=== PATIENT | female | born 1995 | race Caucasian/White ===

== ENCOUNTER 2023-03-15 04:22 | Emergency (ER) | payer SELFPAY ==
[2023-03-15 04:26] VITALS: BP 178/103; PULSE 45; RESP 17; TEMP 36.5; O2SAT 100; BMI 52.2
[2023-03-15 04:29] VITALS: PULSE 45; RESP 10
[2023-03-15 04:30] VITALS: O2SAT 100
[2023-03-15 04:33] VITALS: PULSE 43; RESP 12
[2023-03-15 04:34] VITALS: BP 178/103; PULSE 56; RESP 15; O2SAT 99
--- NOTE | 2023-03-15 04:46 | XR_ITS ---
The [address] [address] Patient Name: IVAN WILEY MRN: [id number] date: 1995 Sex: F Assigned Patient Location: ED.MAIN Current Patient Location: ED.MAIN Accession/Order Number: [id number] Exam Date: 03/15/2023 04:55 Report Date: 03/15/2023 05:17 At the request of: LUIS EDUARDO MARKER Procedure: XR chest 1V EXAM: XR chest 1V 03/15/2023 4:55 AM EDT OH001 CLINICAL STATEMENT: CP chest pain COMPARISON: No prior studies are available at the time of dictation. TECHNIQUE: Single AP radiograph of the chest is submitted. FINDINGS: There is no acute airspace disease. Enlarged cardiac silhouette. The costophrenic recesses are sharp. No pneumothorax. The bony elements are unremarkable. IMPRESSION: No acute airspace disease. Enlarged cardiac silhouette. Electronically authenticated by: TIM CORTES Date: 03/15/2023 05:17
--- NOTE | 2023-03-15 04:46 | ECG_ITS ---
The [facility] Test Date: 2023-03-15 Pat Name: IVAN WILEY Department: Room: - Gender: Female Electrolytic Etcher: : 1995 Requested By: Order Number: [id number] Reading MD: NAVNEET DUMONT Measurements Intervals Pierz Rate: 41 P: 44 [place]: 150 QRS: 35 QRSD: 106 T: 25 QT: 446 QTc: 381 Interpretive Statements 1130 Sinus bradycardia 9140 abnormal rhythm ECG No previous ECG available for comparison Electronically Signed On 03-16-2023 7:07:12 EDT by NAVNEET DUMONT
--- NOTE | 2023-03-15 04:49 | ED_ITS ---
HPI - Chest Pain General Chief Complaint: Chest Pain Stated Complaint: CHEST PAIN Time Seen by Provider: 03/15/23 04:24 Source: patient Mode of arrival: Wheelchair Limitations: no limitations History of Present Illness HPI narrative: 28 year old female with a history of anxiety and bipolar disorder presents for evaluation of midsternal chest pain. The chest pain started around midnight, 5 hours ago while the patient was at work. She states that she may be having some anxiety issues however she had 2 episodes of nausea with vomiting earlier in the evening. She denies any shortness of breath but states she feels that she cannot take a deep breath.She feels dizzy has not passed out. She denies any abdominal pain. She has no lower extremity pain or swelling. She has not had a fever or cough. She states she is supposed to be on Abilify but has not had it since December of this year. MD complaint: Reports chest pain Onset (ago): hour(s) (4) Timing of current episode: Reports constant Onset: Reports other (started after vomiting and while at work) Pain location: Reports substernal Related Data Home Medications Medication Instructions Recorded Confirmed aripiprazole 5 mg tablet (Abilify) 5 mg PO DAILY 03/15/23 03/15/23 Allergies Allergy/AdvReac Type Severity Reaction Status Date / Time flagy Allergy Unknown Uncoded 03/15/23 04:36 Exam Narrative Exam Narrative: Constitutional: Nontoxic morbidly obese female resting comfortably on the stretcher, no respiratory distress Vital signs: Patient is afebrile, she is bradycardic with a pulse of 56 and blood pressure is elevated at 148/100, monitor read 170/103 but a manual was repeated and is lower. She is not hypoxic with pulse ox of 99 percent on room air HEENT: Normocephalic/atraumatic, mucus membranes are moist and pink, no scleral icterus Neck: Supple, no JVD D or meningeal signs Chest: Anterior chest wall tenderness to palpation, no crepitus appreciated, lungs are clear with good air entry, there is no wheezing rhonchi or rales appreciated Abdomen: Soft, nondistended, nontender, no rebound guarding rigidity Extremity exam: nontender, no edema Neuro: No focal deficits Psych: Flat affect, denies suicidal or homicidal ideation Constitutional Vital Signs - 24 hr 03/15/23 04:26 06/29/23 04:29 03/15/23 04:30 Temperature 97.7 F Pulse Rate 45 L Pulse Rate [Monitor] 45 L Respiratory Rate 17 10 L Blood Pressure Blood Pressure [Left Arm] 178/103 H Pulse Oximetry 100 100 Oxygen Delivery Method Room Air 03/15/23 04:33 03/15/23 04:34 Temperature Pulse Rate 43 L 56 L Pulse Rate [Monitor] Respiratory Rate 12 15 Blood Pressure 178/103 H Blood Pressure [Left Arm] Pulse Oximetry 99 Oxygen Delivery Method Course Vital Signs Vital signs: Vital Signs Temperature 97.7 F 03/15/23 04:26 Pulse Rate 45 L 03/15/23 04:26 Respiratory Rate 17 03/15/23 04:26 Blood Pressure 178/103 H 03/15/23 04:26 Pulse Oximetry 100 03/15/23 04:26 Oxygen Delivery Method Room Air 03/15/23 04:26 Temperature 97.7 F 03/15/23 04:26 Pulse Rate 56 L 03/15/23 04:34 Respiratory Rate 15 03/15/23 04:34 Blood Pressure 178/103 H 03/15/23 04:34 Pulse Oximetry 99 03/15/23 04:34 Oxygen Delivery Method Room Air 03/15/23 04:26 MDM - Chest Pain MDM Narrative Medical decision making narrative: 28-year-old female with history of anxiety and bipolar disorder who is off of her psychiatric medications at this time presents for evaluation of 2 episodes of vomiting earlier in the evening with midsternal chest pain and anxiety. She admits to occasional tobacco use. She is morbidly obese. The symptoms started while she was at work. She denies that anything particularly bad happen to her work. An EKG done upon arrival is a sinus bradycardia at 40 bpm. No acute changes were noted. An IV was placed and she was given IV fluids. 324 mg baby aspirin, Zofran and Ativan. Reevaluation she states that she is still having midsternal chest pain and was medicated with IV Toradol. Cardiac workup including troponin and d-dimer are ordered and are reviewed. Her labs are normal with a mild elevation in her creatinine. Her d-dimer and troponin are both normal. She has a normal white count and hemoglobin. Chest x-ray was read by radiology as normal. The patient does not currently have a PCP I encouraged her to follow up closely with [facility] in [place] where she lives. She would benefit from being back on her psychiatric medications. I will discharge her with a prescription for ibuprofen and Zofran. I suspect her bradycardia is chronic in nature and not related to her pain although she may benefit from seeing a surveillance dual rate officer and being more thoroughly evaluated. Lab Data Labs: Lab Results 03/15/23 Range/Units 04:58 WBC 8.4 (4.0-11.0) 10^3/uL RBC 4.23 (4.20-5.40) 10^6/uL Hgb 12.8 (12.0-16.0) g/dL Hct 38.5 (36.0-48.0) % MCV 91.0 (81.0-99.0) fL MCH 30.3 (26.7-34.0) pg MCHC 33.2 (29.9-35.2) g/dL RDW 13.6 (11.0-15.0) % Plt Count 239 (150-450) 10^3/uL MPV 9.5 (9.5-13.5) fL Neut % (Auto) 74.9 (43.0-75.0) % Lymph % (Auto) 17.3 L (20.5-60.0) % [place] % (Auto) 5.8 (1.7-12.0) % Eos % (Auto) 1.1 (0.9-7.0) % Baso % (Auto) 0.5 (0.2-2.0) % Neut # (Auto) 6.3 (1.4-6.5) 10^3/uL Lymph # (Auto) 1.5 (1.2-3.8) 10^3/uL [place] # (Auto) 0.5 (0.3-0.8) 10^3/uL Eos # (Auto) 0.1 (0.0-0.7) 10^3/uL Baso # (Auto) 0.0 (0.0-0.1) 10^3/uL Abs Immat Gran (auto) 0.03 (0.00-0.03) 10^3/uL Imm/Tot Granulo (auto) 0.4 (0.0-0.5) % D-Dimer 0.31 (<=0.59) mg/L FEU Sodium 140 (136-145) mmol/L Potassium 4.0 (3.5-5.1) mmol/L Chloride 105 (98-107) mmol/L Carbon Dioxide 27.1 (21.0-32.0) mmol/L Anion Gap 11.9 BUN 14.0 (7.0-18.0) mg/dL Creatinine 1.06 H (0.55-1.02) mg/dL Est GFR ( Amer) >60 (>=60) Est GFR (Non-Af Amer) >60 (>=60) BUN/Creatinine Ratio 13.2 Glucose 100 (74-106) mg/dL Calcium 9.3 (8.5-10.1) mg/dL Total Bilirubin 0.2 (0.2-1.0) mg/dL AST 22 (15-37) U/L ALT 51 (14-59) U/L Alkaline Phosphatase 56 (46-116) U/L Troponin I High Sens 5.1 (4.0-51.3) pg/mL Total Protein 8.1 (6.4-8.2) g/dL Albumin 3.5 (3.4-5.0) g/dL Globulin 4.6 g/dL Albumin/Globulin Ratio 0.8 Lipase 81.0 (73.0-393.0) U/L Serum HCG, Qual Negative (NEGATIVE) ECG Data Attestation: I personally reviewed and interpreted this ECG as follows: (Sinus bradycardia at 41 beats for minute, normal axis, normal intervals, no acute ST segment elevation or T-wave inversion) Heart Score History: Slightly/Non-Suspicious ECG: Normal Age: <45 years Risk Factors: 1 or 2 Risk Factors Troponin: <Normal Limit Total Heart Score Recommendations & Risks:: 1 Discharge Plan Discharge Chief Complaint: Chest Pain Clinical Impression: Anxiety, Bradycardia, sinus, Atypical chest pain Time of Disposition Decision: 06:12 Prescriptions / Home Meds: No Action aripiprazole [Abilify] 5 mg tablet 5 mg PO DAILY Instructions: Generalized Anxiety Disorder (ED), Acute Nausea and Vomiting (ED), Bradycardia (ED), Chest Wall Pain (ED) Stand Alone Forms: Portal Instructions Referrals: Physician,Non-Staff, MD [Primary Care Provider] - 1 week
[2023-03-15 04:53] VITALS: PULSE 50
--- NOTE | 2023-03-15 04:54 | PC.NURSE ---
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 patient states she was not doing anything stressfull at work. patient denies cardiac hx. admits to having chest pain with anxiety attacks but states it never last this long. when asked if she is anxious currently statess maybe patient is prescribed ablilify but has not been able to take since january 09 due to running out of medication and states she does not have a physician. patient placed on cardic monitor, patient is juan manuel cardic at 45/55bpm. patient denies any numbness or tingling in fingers or extremities.
[2023-03-15 05:05] LABS: Basophils Percent Auto 0.5 % (0.2-2.0); Eosinophils Absolute Auto 0.1 10^3/uL (0.0-0.7); Eosinophils Percent Auto 1.1 % (0.9-7.0); Hematocrit 38.5 % (36.0-48.0); Hemoglobin 12.8 g/dL (12.0-16.0); Immature Granulocytes Abs Auto 0.03 10^3/uL (0.00-0.03); Immature Granulocytes Pct Auto 0.4 % (0.0-0.5); Lymphocytes Absolute Auto 1.5 10^3/uL (1.2-3.8); Lymphocytes Percent Auto 17.3 % (20.5-60.0); Mean Corpuscular HGB Conc 33.2 g/dL (29.9-35.2); Mean Corpuscular Hemoglobin 30.3 pg (26.7-34.0); Mean Platelet Volume 9.5 fL (9.5-13.5); Monocytes Absolute Auto 0.5 10^3/uL (0.3-0.8); Monocytes Percent Auto 5.8 % (1.7-12.0); Neutrophils Absolute Auto 6.3 10^3/uL (1.4-6.5); Neutrophils Percent Auto 74.9 % (43.0-75.0); Platelet Count 239 10^3/uL (150-450); Red Blood Count 4.23 10^6/uL (4.20-5.40); Red Cell Distribution Width 13.6 % (11.0-15.0); White Blood Count 8.4 10^3/uL (4.0-11.0)
[2023-03-15] MEDS: ONDANSETRON PF 4 MG/2 ML VIAL IV (05:10)
[2023-03-15] MEDS: LORAZEPAM 0.5 MG TABLET 1 MG PO (05:10)
[2023-03-15] MEDS: 0.9 % SODIUM CHLORIDE 1,000 ML 1000 ML IV (05:10)
[2023-03-15] MEDS: ASPIRIN 81 MG TAB.CHEW 324 MG PO (05:10)
[2023-03-15 05:21] LABS: HCG Qualitative NEGATIVE (NEGATIVE)
[2023-03-15 05:24] LABS: Alanine Aminotransferase 51 U/L (14-59); Albumin Globulin Ratio 0.8; Albumin Level 3.5 g/dL (3.4-5.0); Alkaline Phosphatase 56 U/L (46-116); Anion Gap 11.9; Aspartate Amino Transferase 22 U/L (15-37); BUN Creatinine Ratio 13.2; Bilirubin Total 0.2 mg/dL (0.2-1.0); Calcium 9.3 mg/dL (8.5-10.1); Carbon Dioxide 27.1 mmol/L (21.0-32.0); Chloride 105 mmol/L (98-107); Estimated GFR (African America >60 (>=60); Estimated GFR (Non-African Ame >60 (>=60); Globulin 4.6 g/dL; Glucose 100 mg/dL (74-106); Sodium 140 mmol/L (136-145); Total Protein 8.1 g/dL (6.4-8.2); Troponin I High Sensitivity 5.1 pg/mL (4.0-51.3)
[2023-03-15 05:25] LABS: D Dimer 0.31 mg/L FEU (<=0.59)
[2023-03-15] MEDS: KETOROLAC TROMETHAMINE 30 MG/ML VIAL IVP (06:09)
== END 2023-03-15 06:52 | disposition home or self-care (01) ==
PROVIDERS: Emergency Provider Emergency Medicine
DX: R07.89 Other chest pain (principal); F41.9 Anxiety disorder, unspecified; R00.1 Bradycardia, unspecified; E66.01 Morbid (severe) obesity due to excess calories; F31.9 Bipolar disorder, unspecified; F17.210 Nicotine dependence, cigarettes, uncomplicated; T43.596A Underdosing of other antipsychotics and neuroleptics, initial encounter; Z68.43 Body mass index [BMI] 50.0-59.9, adult
CPT/HCPCS: 36415; 71045; 80053; 83690; 84484; 84703; 85025; 85378; 93005; 96374; 96375; 99285